=== PATIENT | male | born 1990 | race Two or more races ===

== ENCOUNTER 2016-08-16 13:21 | Emergency (ER) | payer OTHER ==
[~2016-08-16] VITALS: Ht 177.8 cm; Wt 72.6 kg
[2016-08-16 13:44] VITALS: BP 110/53
[2016-08-16] MEDS ORDERED: IBUPROFEN 800 MG TAB PO ONE (14:30)
== END 2016-08-16 14:56 | disposition home or self-care (01) ==
LOC: EDBD 13:26 → ER 13:26
DX: S63.601A Unspecified sprain of right thumb, initial encounter (principal); X58.XXXA Exposure to other specified factors, initial encounter; Y93.89 Activity, other specified; Y99.8 Other external cause status; Y92.89 Other specified places as the place of occurrence of the external cause
CPT/HCPCS: 73140